=== PATIENT | male | born 1985 | race Caucasian/White ===

== ENCOUNTER 2020-11-12 10:57 | Outpatient (CLI) | payer OTHER ==
--- NOTE | 2020-11-12 11:24 | XRAY Report ---
PROCEDURE: Ankle 3 View RT INDICATIONS: RIGHT ANKLE PAIN TECHNIQUE: 3 views of the ankle were acquired. COMPARISON: None. FINDINGS: BONES: No acute, displaced fracture or dislocation. An ossific density is seen distal to the lateral malleolus, compatible remote trauma/injury. The ankle mortise is maintained on these nonstressed vie ws. SOFT TISSUES: No focal abnormality. IMPRESSION: 1.No acute osseous abnormality. Reviewed by: Grzegorz Ann MD on 11/12/2020 11:22 AM PDT Approved by: Grzegorz Ann MD on 11/12/2020 11:22 AM PDT Station ID: [id number]
== END 2020-11-12 23:59 | disposition home or self-care (01) ==
LOC: DI.N 10:57
PROVIDERS: ATTEND Family Medicine
DX: M25.571 Pain in right ankle and joints of right foot (principal)